=== PATIENT | female | born 1945 | race Asian ===

== ENCOUNTER 2018-11-19 20:39 | Emergency (ER) | payer OTHER ==
[2018-11-19] MEDS: ONDANSETRON 4 MG INJ IV ×3 (21:14→22:53)
[2018-11-19] MEDS: HYDROmorphONE 1 MG/ML SYG IV ×2 (21:14→21:58)
[2018-11-19 21:15] LABS: ADD MAN DIFF? NO
[2018-11-19 21:20] LABS: WHITE BLOOD COUNT 5.4 10^3/ul (4.8-10.8)
[2018-11-19 21:20] LABS: BASOPHILS % 0.4 % (0.0-2.0); EOSINOPHILS # 0.1 10^3/ul (0.0-0.5); EOSINOPHILS % 1.9 % (0.0-7.0); HEMATOCRIT 34.9 % (37.0-47.0); HEMOGLOBIN 10.7 g/dl (12.0-16.0); LYMPHOCYTES # 2.2 10^3/ul (0.8-2.9); MEAN CORPUSCULAR HGB CONC 30.7 g/dl (32.0-37.0); MEAN CORPUSCULAR VOLUME 84.9 fl (82.0-101.0); MEAN PLATELET VOLUME 10.9 fl (7.4-10.4); MONOCYTE # 0.4 10^3/ul (0.3-0.9); MONOCYTES % 7.6 % (0.0-11.0); NEUTROPHIL # 2.7 10^3/ul (1.6-7.5); NEUTROPHILS % 49.9 % (39.0-77.0); PLATELET COUNT 178 10^3/UL (140-415); RED BLOOD COUNT 4.11 10^6/ul (4.20-5.40); RED CELL DISTRIBUTION WIDTH 16.4 % (11.5-14.5)
[2018-11-19 21:39] LABS: ANION GAP 8 (5-13); BLOOD UREA NITROGEN 23 mg/dl (7-20); CALCIUM 8.9 mg/dl (8.4-10.2); CARBON DIOXIDE 26 mmol/L (21-31); CHLORIDE 104 mmol/L (97-110); CREATININE 1.19 mg/dl (0.44-1.00); GLUCOSE 137 mg/dl (70-220); LIPASE 130 U/L (23-300); POTASSIUM 3.8 mmol/L (3.5-5.1); SODIUM 138 mmol/L (135-144)
[2018-11-19 21:41] LABS: INR 2.42; PROTIME 26.4 Sec (11.9-14.9); PT RATIO 2.1
[2018-11-19] MEDS: IODIXANOL LOCM 100 ML BTL (22:23)
[2018-11-19] MEDS: SOD CHLORIDE 0.9% 100 ML (22:23)
[2018-11-19] MEDS: niCARdipine-NS 0.1MG/ML DRIP 200 ML IV (22:53)
[2018-11-19] MEDS: morphine 4 MG/ML VIAL IV (22:53)
[2018-11-19] MEDS: PHYTONADIONE 10 MG in DEXTROSE 5% 50 ML IVPB (23:38)
[2018-11-19] MEDS: HUMAN PROTHROMBIN COMPLX(PCC) 1,500 UNITS in EVAC CONTAINER 1 BOTTLE IV (23:38)
[2018-11-20 00:23] LABS: IMMEDIATE SPIN CROSSMATCH 1 10
[2018-11-20 00:47] LABS: HEMATOCRIT 31.9 % (37.0-47.0); HEMOGLOBIN 9.7 g/dl (12.0-16.0)
[2018-11-20] MEDS: niCARdipine-NS 0.1MG/ML DRIP 200 ML IV (00:56)
[2018-11-20] MEDS: morphine 4 MG/ML VIAL IV (01:38)
[2018-11-20] MEDS: ONDANSETRON 4 MG INJ IV (01:38)
== END 2018-11-20 02:39 | disposition short-term general hospital (02) ==
LOC: E/R 11-20 02:39
DX: I71.3 Abdominal aortic aneurysm, ruptured (principal); R40.2142 Coma scale, eyes open, spontaneous, at arrival to emergency department; R40.2362 Coma scale, best motor response, obeys commands, at arrival to emergency department; R40.2252 Coma scale, best verbal response, oriented, at arrival to emergency department; Z79.01 Long term (current) use of anticoagulants
CPT/HCPCS: 36415; 36430; 74177; 80048; 83690; 84484; 85014; 85018; 85025; 85610; 85730; 86850; 86900; 86901; 86920; 96374; 96375; 96376; 99291-25